=== PATIENT | male | born 1935 | race Caucasian/White ===

== ENCOUNTER 2017-11-07 10:22 | Emergency (ER) | payer OTHER ==
[~2017-11-07] VITALS: Ht 175.3 cm; Wt 115.0 kg
[~2017-11-07 10:22] MED LIST: AMLO5TAB96 PO; ASPI81 PO; ATOR80TA41 PO; CHOL1CAP6 PO; CITA20TA4 PO; COQ-100C5 PO; COZA100T PO; FISH1000 PO; PROS5TAB2 PO; PROT40TA PO; TAB-TAB PO
[2017-11-07 10:28] VITALS: BP 162/72; PULSE 66; RESP 16; TEMP 97.5; O2SAT 99
[2017-11-07 10:58] VITALS: BP 153/68; PULSE 63; RESP 18; O2SAT 98
[2017-11-07] MEDS ORDERED: SODIUM CHLORIDE 0.9% FLUSH 10 ML FLUSH IVF PRN (11:00)
[2017-11-07 11:33] LABS: AUTOMATED NEUTROPHIL # 2.9 TH/MM3 (1.8-7.7); BASOPHIL # 0.1 TH/MM3 (0-0.2); BASOPHIL % 1.3 % (0.0-2.0); EOSINOPHIL # 0.3 TH/MM3 (0-0.4); EOSINOPHIL % 5.9 % (0.0-4.0); HEMATOCRIT 39.3 % (39.0-51.0); LYMPH % 19.8 % (9.0-44.0); LYMPHOCYTE # 0.9 TH/MM3 (1.0-4.8); MEAN CELL VOLUME 88.3 FL (80.0-100.0); MEAN CORPUSCULAR HEMOGLOBIN 29.2 PG (27.0-34.0); MEAN CORPUSCULAR HGB CONC 33.1 % (32.0-36.0); MEAN PLATELET VOLUME 7.3 FL (7.0-11.0); MONO % 10.6 % (0.0-8.0); MONOCYTE # 0.5 TH/MM3 (0-0.9); NEUT % 62.4 % (16.0-70.0); PLATELET COUNT 242 TH/MM3 (150-450); RED BLOOD COUNT 4.45 MIL/MM3 (4.50-5.90); RED CELL DISTRIBUTION WIDTH 13.2 % (11.6-17.2); WHITE BLOOD COUNT 4.7 TH/MM3 (4.0-11.0)
--- NOTE | 2017-11-07 11:38 | PD ---
HPI . Shortness of breath Chief Complaint: Respiratory Symptoms Time Seen by Provider: 10:35 Travel History International Travel<30 days: No Contact w/Intl Traveler<30days: No Traveled to known affect area: No History of Present Illness HPI This patient presents with a chief complaint of shortness of breath and weakness. Onset has been several weeks. The states that it is acutely worse today. In addition to the shortness of breath and weakness, he has felt dizzy. He has also had a very mild cough. Otherwise, no other complaints. [place] week, he has not been running a fever. He does not have any cold symptoms. He has not had a significant cough and there has been no sputum. He has not had any vomiting or diarrhea. He has not had any urinary tract symptoms. 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 - has hearing aids) Endocrine: No Gastrointestinal Disorders: No (HX POLYP) GERD: Yes Genitourinary: Yes (enlarged prostates ?) Hypertension: Yes Immune Disorder: No Implanted Vascular Access Dvce: No Kidney Stones: Yes Medical other: Yes (hx of lower legs/feet edema) Musculoskeletal: Yes Neurologic: Yes Psychiatric: Yes Reproductive: No Respiratory: Yes Myocardial Infarction: No Sleep Apnea: Yes Tetanus Vaccination: < 5 Years Influenza Vaccination: Yes Past Surgical History Abdominal Surgery: Yes (2009 UMBILICAL HERNIA REPAIR) Oral Surgery: Yes (T&A CHILDHOOD) Other Surgery: Yes (back surgery, cyst removed anterior neck area) Social History Alcohol Use: Yes (occas. mix drinks, beer and wine) Tobacco Use: No (quit in 1964? smoked cigars and cigs) Substance Use: No Allergies-Medications (Allergen,Severity, Reaction): Coded Allergies: No Known Allergies (Verified Adverse Reaction, Unknown, 11/07/17) Reported Meds & Prescriptions Reported Meds & Active Scripts Active Reported Multi Vitamin Daily (Multiple Vitamin) 1 Tab Tab 1 Tab PO DAILY [place]-3 ([place]-3 Fatty Acids) 1,000 Mg Capsule 1,200 Mg PO DAILY Aspirin EC (Aspirin) 81 Mg Tabdr 81 Mg PO DAILY Donepezil 10 Mg Tab 10 Mg PO HS Furosemide 40 Mg Tab 40 Mg PO DAILY PRN Alprazolam 0.25 Mg Tab 0.25 Mg PO DIRECTED PRN Trazodone (Trazodone HCl) 100 Mg Tablet 100 Mg PO HS PRN Citalopram (Citalopram Hydrobromide) 40 Mg Tab 40 Mg PO DAILY Rosuvastatin (Rosuvastatin Calcium) 20 Mg Tab 20 Mg PO DAILY Losartan (Losartan Potassium) 100 Mg Tab 100 Mg PO HS Proscar (Finasteride) 5 Mg Tab 5 Mg PO HS Do not crush. Amlodipine (Amlodipine Besylate) 10 Mg Tab 10 Mg PO DAILY Review of Systems Except as stated in HPI: all other systems reviewed are Neg General / Constitutional: No: Fever, Chills HENT: Positive: Lightheadedness Respiratory: Positive: Cough, Shortness of Breath Neurologic: Positive: Weakness Physical Exam Narrative Vital Signs Date Time Temp Pulse Resp B/P (MAP) Pulse Ox O2 Delivery O2 Flow Rate FiO2 11/07/17 10:58 63 18 153/68 (96) 98 Room Air 11/07/17 10:52 62 16 99 11/07/17 10:28 97.5 66 16 162/72 (102) 99 GENERAL: Awake and alert and in no acute distress. SKIN: warm/dry. Normal color and turgor. HEAD: Normocephalic. Atraumatic. EYES: Pupils equal and round. No scleral icterus. No injection or drainage. ENT: No nasal bleeding or discharge. Mucous membranes pink and moist. NECK: Trachea midline. Full range of motion without pain.. CARDIOVASCULAR: Regular rate and rhythm. Heart sounds are normal. RESPIRATORY: No accessory muscle use. Clear to auscultation. Breath sounds equal bilaterally. GASTROINTESTINAL: Abdomen soft. Nontender. Bowel sounds present. Nondistended. MUSCULOSKELETAL: No obvious deformities. NEUROLOGICAL: Awake and alert. No obvious cranial nerve deficits. Motor grossly within normal limits. Normal speech. PSYCHIATRIC: Appropriate mood and affect; insight and judgment normal. Data Data Last Documented VS Vital Signs Date Time Temp Pulse Resp B/P (MAP) Pulse Ox O2 Delivery O2 Flow Rate FiO2 11/07/17 10:58 63 18 153/68 (96) 98 Room Air 11/07/17 10:28 97.5 Orders Orders Electrocardiogram (11/07/17 10:52) Basic Metabolic Panel (Bmp) (11/07/17 10:52) Complete Blood Count With Diff (11/07/17 10:52) Urinalysis - C+S If Indicated (11/07/17 10:52) Chest, Single Ap (11/07/17 10:52) Sodium Chloride 0.9% Flush (Ns Flush) (11/07/17 11:00) B-Type Natriuretic Peptide (11/07/17 10:52) Labs Laboratory Tests Test 11/07/17 11:25 11/07/17 12:10 White Blood Count 4.7 TH/MM3 Red Blood Count 4.45 MIL/MM3 Hemoglobin 13.0 GM/DL Hematocrit 39.3 % Mean Corpuscular Volume 88.3 FL Mean Corpuscular Hemoglobin 29.2 PG Mean Corpuscular Hemoglobin Concent 33.1 % Red Cell Distribution Width 13.2 % Platelet Count 242 TH/MM3 Mean Platelet Volume 7.3 FL Neutrophils (%) (Auto) 62.4 % Lymphocytes (%) (Auto) 19.8 % Monocytes (%) (Auto) 10.6 % Eosinophils (%) (Auto) 5.9 % Basophils (%) (Auto) 1.3 % Neutrophils # (Auto) 2.9 TH/MM3 Lymphocytes # (Auto) 0.9 TH/MM3 Monocytes # (Auto) 0.5 TH/MM3 Eosinophils # (Auto) 0.3 TH/MM3 Basophils # (Auto) 0.1 TH/MM3 CBC Comment DIFF FINAL Differential Comment Blood Urea Nitrogen 13 MG/DL Creatinine 0.79 MG/DL Random Glucose 99 MG/DL Calcium Level 9.3 MG/DL Sodium Level 140 MEQ/L Potassium Level 3.6 MEQ/L Chloride Level 107 MEQ/L Carbon Dioxide Level 24.5 MEQ/L Anion Gap 9 MEQ/L Estimat Glomerular Filtration Rate 94 ML/MIN B-Type Natriuretic Peptide 15 PG/ML Urine Collection Type CLEAN CATCH Urine Color YELLOW Urine Turbidity CLEAR Urine pH 8.5 Urine Specific [place] 1.007 Urine Protein 100 mg/dL Urine Glucose (UA) NEG mg/dL Urine Ketones NEG mg/dL Urine Occult Blood NEG Urine Nitrite NEG Urine Bilirubin NEG Urine Leukocyte Esterase NEG Urine RBC 0-3 /hpf Urine Squamous Epithelial Cells 0-5 /hpf Microscopic Urinalysis Comment CULT NOT INDICATED Urine Collection Time 12:10 [facility] Medical Decision Making Medical Screen Exam Complete: Yes Emergency Medical Condition: Yes Medical Record Reviewed: Yes (medical history is significant for hypertension, hyperlipidemia and tobacco abuse.) Interpretation(s) His EKG shows bradycardia at 58. It looks sinus. No acute ischemic changes. Differential Diagnosis Differential diagnosis of dyspnea includes but is not limited to congestive heart failure, pneumonia, wheezing, pneumothorax, pulmonary embolism Narrative Course This patient presents with a one-month history of dyspnea and weakness. His respiratory rate is about 16 and his sats are in the upper 90s on room air. He does not have any extra lung sounds. The nurse was able to learn that the patient has been on Lasix in the past. He has stopped the Lasix as of about 2 months ago because of a side effect. Last Impressions Chest X-Ray 11/07/17 1052 Signed Impressions: Service Date/Time: Tuesday, November 07, 2017 10:55 - CONCLUSION: Moderate severity cardiomegaly. No focal infiltrates seen. Michael Dang MD The chest x-ray was independently viewed by me. CBC Diagram 11/07/17 11:25 BMP Diagram 11/07/17 11:25 Calcium Level 9.3 BNP 15 UA neg for infection. No etiology for his dyspnea has been found. Circumflex clear. His respiratory rate is 16 and his oxygen saturation on room air is 99%. This chest x-ray shows cardiomegaly but no pulmonary edema. BNP is normal. Diagnosis Primary Impression: Dyspnea Qualified Codes: R06.00 - Dyspnea, unspecified Patient Instructions: Dyspnea (DC), General Instructions Disposition: 01 DISCHARGE HOME Condition: Stable Lexy Yu MD Nov 07, 2017 11:38
--- NOTE | 2017-11-07 11:39 | RADRPT ---
EXAM DATE/TIME: 11/07/2017 10:55 [facility] COMPARISON: CHEST SINGLE AP, November 02, 2014, 13:49. INDICATIONS : Short of breath MEDICAL HISTORY : Hypertension. Sleep apnea SURGICAL HISTORY : None. ENCOUNTER: Initial ACUITY: 1 day PAIN SCORE: 0/10 LOCATION: Bilateral chest FINDINGS: The heart is enlarged, similar to prior. Central bronchopulmonary markings are well delineated. No focal infiltrate seen. Both hemidiaphragms are well delineated. CONCLUSION: Moderate severity cardiomegaly. No focal infiltrates seen. Michael Dang MD on November 07, 2017 at 11:37 Board Certified Radiologist. This report was verified electronically.
[2017-11-07 11:42] LABS: BICARBONATE 24.5 MEQ/L (21.0-32.0); CALCIUM 9.3 MG/DL (8.5-10.1)
[2017-11-07 11:46] LABS: CREATININE 0.79 MG/DL (0.60-1.30)
[2017-11-07] MEDS ORDERED: ALPR0.25 PO (12:08)
[2017-11-07] MEDS ORDERED: AMLO10TA2 PO (12:08)
[2017-11-07] MEDS ORDERED: ROSU1TAB8 PO (12:08)
[2017-11-07] MEDS ORDERED: CITA40TA4 PO (12:08)
[2017-11-07] MEDS ORDERED: FURO40TA PO (12:08)
[2017-11-07] MEDS ORDERED: DONE10TA7 PO (12:08)
[2017-11-07] MEDS ORDERED: TRAZ100T10 PO (12:08)
[2017-11-07] MEDS ORDERED: LOSA100T PO (12:08)
[2017-11-07] MEDS ORDERED: PROS5TAB PO (12:08)
[2017-11-07] MEDS ORDERED: ASPI81TA23 PO (12:09)
[2017-11-07] MEDS ORDERED: MULT1TAB46 PO (12:16)
[2017-11-07] MEDS ORDERED: OMEG10004 PO (12:16)
[2017-11-07 12:19] LABS: BILIRUBIN, URINE NEG (NEG); BLOOD, URINE NEG (NEG); GLUCOSE,URINE NEG (NEG); KETONE, URINE NEG (NEG); NITRITE,URINE NEG (NEG); PH, URINE 8.5 (5.0-8.5); URINE LEUKOCYTE ESTERASE NEG (NEG)
[2017-11-07 12:21] LABS: URINE COLOR YELLOW (YELLW/STRAW)
[2017-11-07 12:22] LABS: RBC, URINE 0-3 /hpf (0-3); SQUAMOUS EPITHELIAL CELL URINE 0-5 /hpf (0-5)
[2017-11-07 13:02] VITALS: BP 148/71
--- NOTE | 2017-11-07 16:35 | EKG ---
Date Performed: 11/07/2017 Time Performed: 11:00:57 PTAGE: 82 years EKG: SINUS BRADYCARDIA WITH OCCASIONAL SUPRAVENTRICULAR PREMATURE COMPLEXES NONSPECIFIC T-WAVE A BNORMALITY ABNORMAL ECG PREVIOUS TRACING : 11/02/2014 19.20 Compared to previous tracing, heart rate has slowed. DOCTOR: Dominik Witt Interpretating Date/Time 11/07/2017 16:32:41
== END 2017-11-07 13:14 | disposition home or self-care (01) ==
LOC: PHED 10:22
DX: R06.00 Dyspnea, unspecified (principal); I51.7 Cardiomegaly; R94.31 Abnormal electrocardiogram [ECG] [EKG]; F41.9 Anxiety disorder, unspecified; F32.9 Major depressive disorder, single episode, unspecified; E78.00 Pure hypercholesterolemia, unspecified; K21.9 Gastro-esophageal reflux disease without esophagitis; I10 Essential (primary) hypertension; G47.30 Sleep apnea, unspecified; Z87.891 Personal history of nicotine dependence
CPT/HCPCS: 71045; 80048; 81001; 83880; 85025; 93005; 99285